=== PATIENT | male | born 1980 | race Hispanic/Latino ===

== ENCOUNTER 2025-03-24 15:02 | Emergency (ER) | payer OTHER ==
[~2025-03-24 15:02] MED LIST: Iopamidol-370 76% 500 ML MDV (1 ML CHARGE) ONE
[2025-03-24 16:33] LABS: #Basophils 0.04 10x3/uL (0.0-0.2); #Eosinophils 0.05 10x3/uL (0.0-0.7); #Monocytes 0.51 10x3/uL (0.11-0.59); #Neutrophils 3.92 10x3/uL (1.40-6.50); %Basophils 0.7 % (0.0-1.0); %Eosinophils 0.8 % (0.0-10.0); %Lymphocytes 24.6 % (21.0-51.0); %Monocytes 8.5 % (0.0-10.0); %Neutrophils 65.1 % (42.0-75.0); Hematocrit 41.3 % (42.0-52.0); Hemoglobin 13.9 g/dL (14.0-18.0); Mean Corpuscular Hemoglobin 30.3 pg (27.0-31.0); Mean Corpuscular Volume 90.0 fL (78.0-98.0); Platelet Count 262 10x3/uL (130-400); Red Blood Cell (RBC) Count 4.59 mill/uL (4.70-6.10); White Blood Cell (WBC) Count 6.02 10x3/uL (4.8-10.8)
[2025-03-24 17:00] LABS: ALT (SGPT) 65 U/L (Less than 45); AST (SGOT) 45 U/L (11-34); Albumin 4.5 g/dL (3.1-4.5); Alkaline Phosphatase 58 U/L (40-110); Anion Gap 18 mmol/L (10-20); BUN (Urea Nitrogen) 13 mg/dL (8.9-20.6); Bilirubin, Total 0.4 mg/dL (0.3-1.2); Calc. Creatinine Clearance 0 mL/min (70-130); Calcium 9.4 mg/dL (7.8-10.44); Carbon Dioxide 25 mmol/L (22-29); Chloride 104 mmol/L (98-107); Globulin 3.5 g/dL (2.4-3.5); Glucose 107 mg/dL (70-105); Potassium 3.8 mmol/L (3.5-5.1); Sodium 143 mmol/L (136-145)
== END 2025-03-24 16:58 | disposition home or self-care (01) ==
LOC: ERS 15:02
DX: S10.93XA Contusion of unspecified part of neck, initial encounter (principal); M79.641 Pain in right hand; R51.9 Headache, unspecified; R00.0 Tachycardia, unspecified; Z55.6 Problems related to health literacy; V49.50XA Passenger injured in collision with unspecified motor vehicles in traffic accident, initial encounter
CPT/HCPCS: 70450; 70498; 72125; 80053; 85025; 93005; G0390